=== PATIENT | male | born 1950 | race Caucasian/White ===

== ENCOUNTER 2016-11-30 10:45 | Inpatient (IN) | payer OTHER ==
--- NOTE | ~2016-11-30 | HP ---
History And Physical [place] [id number] [facility] [place]. [address] NAME: SHELBIE BUSTILLO : 52 STATUS : ADM Aissatou PAT#: [id number] AGE: 66 ADM/REG DATE : 11/30/16 MR#: [id number] REPORT SERV DATE: 11/30/16 DICTATED BY: EFFIE STEVENS DATE: 11/30/16 REPORT STATUS : Draft TRANSCRIBED BY: MODAissatou DATE: 11/30/16 DATE OF ADMISSION: 11/30/2016 CHIEF COMPLAINT: Chest pain. HISTORY OF PRESENT ILLNESS: This is a 66-year-old male with no prior CAD but a history of type 2 diabetes mellitus and hypertension, who reports a one-week history of exertional chest pain. He describes it as "like someone sitting on my chest, and I cannot catch my breath." The pain occurs when he is walking and then can times last for hours, not necessarily relieved with rest. Last night, the chest pain occurred at rest, and he took multiple doses of aspirin which seemed to relieve the pain at first and then it would return. Today, the pain radiated to his left arm, and he rated the chest pain as a 5/10 in severity. His son brought him to our emergency department for further evaluation. Upon admission, his blood pressure was 185/110. He was chest pain free. He was given a dose of hydralazine 10 mg IV, and his blood pressure is currently 133/79. IV fluids were also started for some mild tachycardia and a creatinine of 1.4. The patient is currently chest pain free. Upon review of records, he was admitted to our chest pain observation unit in 10/2014 and underwent nuclear stress testing which was low- risk vasodilator stress test. He denies any recent significant shortness of breath other than with the chest pain. Denies PND or orthopnea. Does state problems with "circulation" to the lower extremities. Reporting leg cramps when he walks and his feet "staying cold." This has been going on for approximately three years. The patient states compliance with his blood pressure and diabetes medication, but does not regularly check his blood pressure. Denies any recent fever, cough, or chills. Denies PND, orthopnea, or presyncope. MEDICAL HISTORY: 1. Type 2 diabetes mellitus with neuropathy. He reports blood glucose 130s to 140s at home. 2. Hypertension. 3. History of nuclear stress test in 10/2014, which was a low-risk vasodilator study. 4. History of renal calculi in . PAST SURGICAL HISTORY: Tonsillectomy as a child. HOME MEDICATIONS: Amlodipine 5 q.h.s., aspirin 81 daily, Glucotrol 5 daily, lisinopril/HCTZ 20/25 daily, and metformin 1000 mg twice a day. ALLERGIES: NO KNOWN DRUG ALLERGIES. SOCIAL HISTORY: The patient is with one son who is at bedside. 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 Denies tobacco or alcohol use. FAMILY HISTORY: Son with an [place] at age 33 requiring cardiac stents. Brother with PCI in 2004 at age 55. Sister with an [place] at age 65, still living. History And Physical [address] [address] NAME: SHELBIE BUSTILLO : 52 STATUS : ADM Aissatou PAT#: [id number] AGE: 66 ADM/REG DATE : 11/30/16 MR#: [id number] REPORT SERV DATE: 11/30/16 DICTATED BY: EFFIE STEVENS DATE: 11/30/16 REPORT STATUS : Draft TRANSCRIBED BY: SANDRA DATE: 11/30/16 REVIEW OF SYSTEMS: Negative except as indicated above. PHYSICAL EXAMINATION: VITAL SIGNS: Blood pressure 185/110, down to 133/79; heart rate 80s to 90s; temperature 98.1; pulse oximetry 97% on room air. GENERAL: Well developed, well nourished, in no acute distress HEENT: Anicteric. Normal EOM. Head normocephalic. PERRLA, no xanthelasma. NECK: Supple. No JVD. Carotids normal without bruits. LUNGS: Clear to auscultation bilaterally anterior and posterior. Respirations even and unlabored. CARDIAC: S1, S2 regular rate and rhythm. No murmurs, rubs, or gallops. No chest wall tenderness. ABDOMEN: Normal bowel sounds. Soft and nontender to palpation. No masses or organomegaly. EXTREMITIES: There is a trace edema to the bilateral lower extremities. Normal pedal pulses. No cyanosis or clubbing. SKIN: Warm and dry. Normal turgor. No pallor or cyanosis. MUSCULOSKELETAL: Moving all extremities x4. Normal muscle strength. NEURO/PSYCH: Alert and oriented with appropriate affect. LABORATORY DATA: Sodium 138, potassium 4.4, BUN 21, creatinine 1.4 and baseline also around 1.4 in 2015, and glucose 272. White blood count 6.4, hemoglobin 14.1, hematocrit 40.5. Troponin less than 0.02. Chest x-ray shows no acute cardiopulmonary processes. EKG interpreted by myself indicates normal sinus rhythm with poor R-wave progression through the anteroseptal leads. No indication of ischemia. ASSESSMENT AND PLAN: 1. Substernal chest pain in this 66-year-old male with features concerning for unstable angina. His cardiovascular risk factors include hypertension and diabetes mellitus. His initial troponin is negative. We will plan to draw a second troponin, and if this is normal, likely proceed with nuclear stress testing in the morning to identify any patterns of ischemia. I would have a low threshold for sending him for cardiac catheterization, getting his presenting symptoms. Meanwhile, we will continue aspirin therapy and likely initiate beta-andrea therapy after stress testing. Also plan to start nitroglycerin paste for re-occurrence of any chest pain. 2. Hypertension. Blood pressure is now controlled status post hydralazine IV. The patient is on Zestoretic at home. We will continue. 3. Type 2 diabetes mellitus, appears uncontrolled. The patient takes metformin at home. We will hold this while he is here. [place] level 1 sliding scale insulin protocol. Plan to check hemoglobin A1c. 4. Acute kidney injury versus chronic kidney disease with a creatinine at 1.4. We will continue some IV hydration, although the patient denies any recent nausea, vomiting, or diarrhea. History And Physical [address] [address] NAME: SHELBIE BUSTILLO : 52 STATUS : ADM Aissatou PAT#: [id number] AGE: 66 ADM/REG DATE : 11/30/16 MR#: [id number] REPORT SERV DATE: 11/30/16 DICTATED BY: EFFIE STEVENS DATE: 11/30/16 REPORT STATUS : Draft TRANSCRIBED BY: SANDRA DATE: 11/30/16 MONICA/SANDRA Effie Stevens NP / [id number] CC: JAMIE Foote M.D.
--- NOTE | ~2016-11-30 | DS ---
Discharge Summary [facility] [address] [place]. [address] NAME: SHELBIE BUSTILLO : 52 STATUS : DIS IN PAT#: [id number] AGE: 66 ADM/REG DATE : 11/30/16 MR#: [id number] REPORT SERV DATE: 12/10/16 DICTATED BY: ROMARIO CR DATE: 12/10/16 REPORT STATUS : Draft TRANSCRIBED BY: SANDRA DATE: 12/10/16 Data Collection from hospitalization DISCHARGE DIAGNOSES: 1. Unstable angina. 2. Coronary artery disease status post drug-eluting stent to the RCA. 3. Hypertension. 4. Type 2 diabetes mellitus. CONSULTATIONS: None. PROCEDURES: Cardiac catheterization and percutaneous coronary intervention, 12/03/2016. DISCHARGE MEDICATIONS: Norvasc 5 mg at bedtime, Halfprin 81 mg daily, Lipitor 40 mg at bedtime, Coreg 3.125 mg twice a day, Plavix 75 mg daily, Glucotrol 5 mg daily, Zestoretic one tablet daily, Glucophage 1000 mg with breakfast and supper, nitroglycerin 0.4 mg sublingually as needed. CONDITION ON DISCHARGE: Stable. DISPOSITION: The patient was discharged home on a low sodium, low cholesterol, diabetic diet with no concentrated carbohydrates and activities as instructed. FOLLOWUP: He would follow up with me, 01/07/2017. He would follow up with Dr. Nash Richards, 12/17/2016. He would follow up at [facility] in two to seven days following discharge. HOSPITAL COURSE: This is a 66-year-old man, who has no prior coronary artery disease, but does have a history of type 2 diabetes mellitus and hypertension. He reports a one-week history of exertional chest pain. He described it as "someone sitting on his chest and could not catch his breath." The pain occurred when he was walking and at times, it can last for hours. It is not necessarily relieved with rest. On the night prior to this admission, the chest pain occurred at rest and he took multiple doses of aspirin, which seemed to relieve the pain at first and then it would return. On the day of this admission, the pain radiated to his left arm and he rated the chest pain as 5/10 in severity. His son brought him to the emergency department. His blood pressure was 185/110. He was chest pain free. He was given a dose of IV hydralazine and his blood pressure decreased to 133/79. IV fluids were started for some mild tachycardia. Creatinine level was 1.4. He was admitted to the hospital at this time for further evaluation and treatment. Upon admission, his initial troponin was negative. A second troponin would be drawn and if that was normal, we would likely proceed with nuclear stress testing to identify any patterns of ischemia. There would be a low threshold for sending him for cardiac catheterization given his presenting symptoms. Aspirin therapy would be continued and we would likely initiate beta-andrea therapy after stress testing. We also planned to start nitroglycerin paste for reoccurrence of any chest pain. Blood pressure was now controlled following IV hydralazine. The patient was on Zestoretic at home and this was continued. Blood sugars were uncontrolled. He takes metformin at home. This would be held while he Discharge Summary [address] [address] NAME: SHELBIE BUSTLILO : 52 STATUS : DIS IN PAT#: [id number] AGE: 66 ADM/REG DATE : 11/30/16 MR#: [id number] REPORT SERV DATE: 12/10/16 DICTATED BY: ROMARIO CR DATE: 12/10/16 REPORT STATUS : Draft TRANSCRIBED BY: SANDRA DATE: 12/10/16 was here. We instituted level 1 sliding scale insulin protocol. We were going to check a hemoglobin A1c. He was felt to have acute kidney injury versus chronic kidney disease with a creatinine of 1.4. IV hydration would be continued. Also, the patient denied recent nausea, vomiting, or diarrhea. The patient did not want to undergo a stress test. We would consider proceeding with cardiac catheterization. Beta-andrea and nitroglycerin paste were started. A lipid panel was going to be checked. The following day, his symptoms were now stable. His lungs were clear bilaterally. Over the next couple of days, he had no further chest pain or shortness of breath. On 12/03/2016, he was taken to the cardiac tender labor, where he underwent the above-mentioned procedure by Dr. Charlie Elizabeth. He tolerated this well and there were no complications. Following the cardiac catheterization, he felt well. He had no chest pain. Discharge instructions were given. Due to his improved and stable condition, he was discharged home with the above-stated instructions. Information collected by: Leonela Chris I submit the above information as my discharge summary. RODNEY/SANDRA Romario Cr M.D. / [id number] CC: JAMIE Foote M.D.
[2016-11-30 09:37] LABS: BASOPHILS 0.3 %; BASOPHILS ABSOLUTE 0.02 10/3/uL (0.0-0.16); EOSINOPHILS 7.5 %; EOSINOPHILS ABSOLUTE 0.48 10/3/uL (0.0-0.53); HEMATOCRIT 40.5 % (40.0-51.0); HEMOGLOBIN 14.1 g/dL (13.6-17.8); IMMATURE GRANULOCYTES 0.3 %; IMMATURE GRANULOCYTES ABSOLUTE 0.02 10/3/uL (0.0-0.11); LYMPHOCYTES 26.4 %; LYMPHOCYTES ABSOLUTE 1.69 10/3/uL (0.67-4.30); MANUAL DIFF NO %; MEAN CORPUS HGB CONC 34.8 g/dL (32.0-36.0); MEAN PLATELET VOLUME 10.3 fL (9.2-13.0); MONOCYTES 6.9 %; MONOCYTES ABSOLUTE 0.44 10/3/uL (0.21-1.20); NEUTROPHILS 58.6 %; NEUTROPHILS ABSOLUTE 3.76 10/3/uL (2.02-8.40); PLATELET COUNT 191 10/3/uL (150-400); RBC DISTRIBUTION WIDTH 12.8 % (12.0-16.0); WHITE BLOOD CELLS 6.4 10/3/uL (4.5-10.5)
[2016-11-30 09:44] LABS: PARTIAL THROMBO TIME 29.4 SEC (22.5-37.2)
[2016-11-30 09:50] LABS: INTERNATIONAL NORMAL RATI 1.1 UNITS (-); PROTIME (NOT ORD) 14.1 SEC (12.0-14.5)
[2016-11-30 09:56] LABS: BUN (BLOOD UREA NITROGEN) 21 MG/DL (6-23); CALCIUM, SERUM 8.9 MG/DL (8.5-10.4); CHEST PAIN PROFILE TAT 0 Hrs 23 Mins; CHLORIDE, SERUM 103 MMOL/L (96-112); CREATININE 1.48 MG/DL (0.70-1.30); GFR AFRICAN AMERICAN 57 ML/MIN (>=60); GFR NON AFRICAN AMERICAN 49 ML/MIN (>=60); POTASSIUM, SERUM 4.4 MMOL/L (3.5-5.3); SODIUM, SERUM 138 MMOL/L (135-148); TROPONIN I <0.02 NG/ML (<0.05)
[2016-11-30 09:57] LABS: CO2 (CARBON DIOXIDE) 21 MMOL/L (24-34); GLUCOSE, SERUM 272 MG/DL (60-99)
[~2016-11-30 10:45] MED LIST: ASAB PO; GLUCOPHAGE1000 MG PO; GLUCOTROL5 PO; GLYNASE6 MG PO; HALF81 PO; MULTIVITAMI1 PO; NORV5 PO; PRAVACHOL40 MG PO; ZESTORETIC PO; ZESTORETIC1 TA1 PO
[2016-12-01 06:38] LABS: BUN (BLOOD UREA NITROGEN) 19 MG/DL (6-23); CALCIUM, SERUM 8.6 MG/DL (8.5-10.4); CHLORIDE, SERUM 108 MMOL/L (96-112); CHOL/HDL RATIO(NOT ORDER) 5.5 (0-5); CHOLESTEROL 169 MG/DL (< 200); CREATININE 1.26 MG/DL (0.70-1.30); GFR AFRICAN AMERICAN 69 ML/MIN (>=60); GFR NON AFRICAN AMERICAN 59 ML/MIN (>=60); HDL CHOLESTEROL 31 MG/DL (> 39); LDL CHOLESTEROL 106 MG/DL (< 130); NON-HDL CHOLESTEROL 138 MG/DL (< 160); POTASSIUM, SERUM 4.7 MMOL/L (3.5-5.3); SODIUM, SERUM 141 MMOL/L (135-148)
[2016-12-01 06:39] LABS: CO2 (CARBON DIOXIDE) 27 MMOL/L (24-34); GLUCOSE, SERUM 131 MG/DL (60-99); TRIGLYCERIDE 163 MG/DL (< 150)
[2016-12-02 11:36] LABS: BUN (BLOOD UREA NITROGEN) 22 MG/DL (6-23); CHLORIDE, SERUM 102 MMOL/L (96-112); CO2 (CARBON DIOXIDE) 24 MMOL/L (24-34); CREATININE 1.52 MG/DL (0.70-1.30); GFR AFRICAN AMERICAN 55 ML/MIN (>=60); GFR NON AFRICAN AMERICAN 47 ML/MIN (>=60); GLUCOSE, SERUM 310 MG/DL (60-99); POTASSIUM, SERUM 4.7 MMOL/L (3.5-5.3); SODIUM, SERUM 137 MMOL/L (135-148)
[2016-12-03 05:05] LABS: BASOPHILS 0.2 %; BASOPHILS ABSOLUTE 0.02 10/3/uL (0.0-0.16); EOSINOPHILS 8.3 %; EOSINOPHILS ABSOLUTE 0.67 10/3/uL (0.0-0.53); HEMATOCRIT 38.3 % (40.0-51.0); HEMOGLOBIN 13.2 g/dL (13.6-17.8); IMMATURE GRANULOCYTES 0.1 %; IMMATURE GRANULOCYTES ABSOLUTE 0.01 10/3/uL (0.0-0.11); LYMPHOCYTES 32.3 %; LYMPHOCYTES ABSOLUTE 2.62 10/3/uL (0.67-4.30); MEAN CORPUS HGB CONC 34.5 g/dL (32.0-36.0); MEAN CORPUSCULAR VOLUME 92.7 fL (80-100); MEAN PLATELET VOLUME 10.4 fL (9.2-13.0); MONOCYTES 7.8 %; MONOCYTES ABSOLUTE 0.63 10/3/uL (0.21-1.20); NEUTROPHILS 51.3 %; NEUTROPHILS ABSOLUTE 4.15 10/3/uL (2.02-8.40); PLATELET COUNT 214 10/3/uL (150-400); RBC DISTRIBUTION WIDTH 12.9 % (12.0-16.0); RED CELL COUNT 4.13 10/6/uL (4.7-6.1); WHITE BLOOD CELLS 8.1 10/3/uL (4.5-10.5)
[2016-12-03 05:10] LABS: MANUAL DIFF NO %
[2016-12-03 05:21] LABS: BUN (BLOOD UREA NITROGEN) 25 MG/DL (6-23); CALCIUM, SERUM 9.2 MG/DL (8.5-10.4); CHLORIDE, SERUM 103 MMOL/L (96-112); CHOL/HDL RATIO(NOT ORDER) 5.3 (0-5); CHOLESTEROL 168 MG/DL (< 200); CO2 (CARBON DIOXIDE) 25 MMOL/L (24-34); CREATININE 1.56 MG/DL (0.70-1.30); GFR AFRICAN AMERICAN 53 ML/MIN (>=60); GFR NON AFRICAN AMERICAN 46 ML/MIN (>=60); HDL CHOLESTEROL 32 MG/DL (> 39); LDL CHOLESTEROL 107 MG/DL (< 130); NON-HDL CHOLESTEROL 136 MG/DL (< 160); POTASSIUM, SERUM 4.6 MMOL/L (3.5-5.3); SODIUM, SERUM 139 MMOL/L (135-148); TRIGLYCERIDE 146 MG/DL (< 150)
[2016-12-03 05:22] LABS: GLUCOSE, SERUM 187 MG/DL (60-99)
[2016-12-03] MEDS ORDERED: NTG150 SL (14:17)
[2016-12-03] MEDS ORDERED: COREG3 PO (14:18)
[2016-12-03] MEDS ORDERED: PLAVIX PO (14:18)
[2016-12-03] MEDS ORDERED: LIPITOR40 PO (14:18)
[2016-12-04] MEDS ORDERED: CENTRUM PO (14:23)
== END 2016-12-03 16:55 | disposition home or self-care (01) | DRG 247 ==
LOC: ER 10:45 → CDU1 11:14 → CDU2 11:52 → SSU1 12-03 09:45
PROVIDERS: Hospitalist; Nurse Practitioner
PROC: 027034Z Dilation of Coronary Artery, One Artery with Drug-eluting Intraluminal Device, Percutaneous Approach (ICD-10-PCS; principal; 2016-12-03)
PROC: 4A023N7 Measurement of Cardiac Sampling and Pressure, Left Heart, Percutaneous Approach (ICD-10-PCS; 2016-12-03)
PROC: B2151ZZ Fluoroscopy of Left Heart using Low Osmolar Contrast (ICD-10-PCS; 2016-12-03)
PROC: B2111ZZ Fluoroscopy of Multiple Coronary Arteries using Low Osmolar Contrast (ICD-10-PCS; 2016-12-03)
DX: I25.110 Atherosclerotic heart disease of native coronary artery with unstable angina pectoris (principal); N17.9 Acute kidney failure, unspecified; I10 Essential (primary) hypertension; E11.65 Type 2 diabetes mellitus with hyperglycemia; N18.9 Chronic kidney disease, unspecified; E66.9 Obesity, unspecified; Z79.4 Long term (current) use of insulin; Z82.49 Family history of ischemic heart disease and other diseases of the circulatory system; Z87.442 Personal history of urinary calculi
CPT/HCPCS: 71020; 80048; 80061; 82962; 83036; 83735; 84484; 85025; 85347; 85610; 85730; 93005; 93458; 96374; 99152; 99153; 99285; A9270-GY; C1725; C1769; C1874; C1887; C1894; C9600; J0360; J2250; J3010; Q9967

== ENCOUNTER 2016-12-04 14:14 | Emergency (ER) | payer OTHER ==
[2016-12-04 13:48] LABS: BASOPHILS 0 %; EOSINOPHILS 0.1 %; EOSINOPHILS ABSOLUTE 0.01 10/3/uL (0.0-0.53); HEMATOCRIT 39.8 % (40.0-51.0); HEMOGLOBIN 13.7 g/dL (13.6-17.8); IMMATURE GRANULOCYTES 0.2 %; IMMATURE GRANULOCYTES ABSOLUTE 0.02 10/3/uL (0.0-0.11); LYMPHOCYTES 5.8 %; LYMPHOCYTES ABSOLUTE 0.76 10/3/uL (0.67-4.30); MEAN CORPUS HGB CONC 34.4 g/dL (32.0-36.0); MEAN CORPUSCULAR HEMOGLOB 31.8 pg (26.0-34.0); MEAN CORPUSCULAR VOLUME 92.3 fL (80-100); MEAN PLATELET VOLUME 10.7 fL (9.2-13.0); MONOCYTES ABSOLUTE 0.79 10/3/uL (0.21-1.20); NEUTROPHILS 87.9 %; NEUTROPHILS ABSOLUTE 11.63 10/3/uL (2.02-8.40); PLATELET COUNT 241 10/3/uL (150-400); RBC DISTRIBUTION WIDTH 12.9 % (12.0-16.0); RED CELL COUNT 4.31 10/6/uL (4.7-6.1)
[2016-12-04 13:49] LABS: ER CBC TAT 0 Hrs 08 Mins; MANUAL DIFF NO %; WHITE BLOOD CELLS 13.2 10/3/uL (4.5-10.5)
[2016-12-04 13:59] LABS: INTERNATIONAL NORMAL RATI 1.1 UNITS (-); PARTIAL THROMBO TIME 27.8 SEC (22.5-37.2); PROTIME (NOT ORD) 13.6 SEC (12.0-14.5)
[2016-12-04 14:04] LABS: CHEST PAIN PROFILE TAT 0 Hrs 23 Mins; CHLORIDE, SERUM 99 MMOL/L (96-112); CO2 (CARBON DIOXIDE) 28 MMOL/L (24-34); CREATININE 1.43 MG/DL (0.70-1.30); GFR AFRICAN AMERICAN 59 ML/MIN (>=60); GFR NON AFRICAN AMERICAN 51 ML/MIN (>=60); POTASSIUM, SERUM 4.4 MMOL/L (3.5-5.3); SODIUM, SERUM 137 MMOL/L (135-148); TROPONIN I <0.02 NG/ML (<0.05)
[2016-12-04 14:05] LABS: BUN (BLOOD UREA NITROGEN) 19 MG/DL (6-23); GLUCOSE, SERUM 321 MG/DL (60-99)
[~2016-12-04 14:14] MED LIST changes: +COREG3 PO; +LIPITOR40 PO; +NTG150 SL; +PLAVIX PO
[2016-12-04] MEDS ORDERED: CENTRUM PO (14:23)
== END 2016-12-04 16:18 | disposition home or self-care (01) ==
LOC: ER 14:14
PROVIDERS: Hospitalist
DX: I20.9 Angina pectoris, unspecified (principal); I12.9 Hypertensive chronic kidney disease with stage 1 through stage 4 chronic kidney disease, or unspecified chronic kidney disease; N18.3 Chronic kidney disease, stage 3 (moderate); E11.22 Type 2 diabetes mellitus with diabetic chronic kidney disease; Z87.442 Personal history of urinary calculi; Z98.61 Coronary angioplasty status; Z79.899 Other long term (current) drug therapy; Z79.84 Long term (current) use of oral hypoglycemic drugs; Z79.82 Long term (current) use of aspirin
CPT/HCPCS: 71020; 80048; 83735; 84484; 85025; 85610; 85730; 93005; 99285; A9270-GY

== ENCOUNTER 2017-01-21 17:50 | Observation (INO) | payer OTHER ==
--- NOTE | ~2017-01-21 | HP ---
History And Physical [place] [id number] [facility] [place]. [address] NAME: SHELBIE BUSTILLO : 52 STATUS : ADM Aissatou PAT#: [id number] AGE: 66 ADM/REG DATE : 01/21/17 MR#: [id number] REPORT SERV DATE: 01/22/17 DICTATED BY: JESSICA TENA DATE: 01/22/17 REPORT STATUS : Draft TRANSCRIBED BY: SANDRA DATE: 01/22/17 DATE OF ADMISSION: 01/21/2017 ASSISTANT TEACHER: Romario Guzman M.D. CHIEF COMPLAINT: Chest pain. HISTORY OF PRESENT ILLNESS: A very pleasant 66-year-old white gentleman with known history of CAD, status post KEY to RCA, 11/2016. The patient states that he returned to our emergency room on 12/07/2016 the day after his stent was placed for complaints of chest pain. He was seen in the emergency room, Imdur was added and he was discharged home. He states that the Imdur helped briefly, but his chest pain has persisted. He describes the chest pain as "identical" to his previous cardiac event. He reports two to three episodes of chest discomfort weekly that occur randomly. There also seems to be a GI component as he has not been eager with meals and some nausea. He reports associated shortness of breath, nausea, diaphoresis, dizziness, and belching. At its most intense he rates the chest pain a 10/10, at time of interview in the CPOU he rates it a 1/10. He reports requiring several doses of nitroglycerin sublingual prior to coming, returning back to the hospital. He also has right upper quadrant tenderness on exam. The patient denies any personal history of myocardial infarction, stroke, DVT, or pulmonary embolus. The patient denies any recent fever or chills. Describes occasional palpitations, consumes three cups of coffee per day. No syncopal episodes. Denies PND or orthopnea. PAST MEDICAL HISTORY: 1. CAD. a. Status post KEY to RCA 11/[address] Elizabeth with 75% lesion in his OM and a 95% in his distal LAD. 2. Hypertension. 3. Dyslipidemia. 4. AODM. 5. Former tobacco abuse. 6. Positive family history for early CAD. SURGICAL HISTORY: Tonsillectomy. SOCIAL HISTORY: He is with one child. Retired from [employer]. Does not have an exercise routine. Quit smoking 15 years ago. Also smoked and used smokeless tobacco products. Rarely consumes alcohol. Denies illicits. FAMILY HISTORY: Mother at 72 of ESRD. Father at 58 of black lung disease, who was land title examiner. Sister with CAD and stents, remains alive at 69. Brother with CAD and stents at 50, remains alive at 64. Son with two stents at 34, remains alive at 46. REVIEW OF SYSTEMS: 14-point review of systems performed, significant for HPI. No other contributory diagnosis History And Physical [address] [address] NAME: SHELBIE BUSTILLO : 52 STATUS : ADM Aissatou PAT#: [id number] AGE: 66 ADM/REG DATE : 01/21/17 MR#: [id number] REPORT SERV DATE: 01/22/17 DICTATED BY: JESSICA TENA DATE: 01/22/17 REPORT STATUS : Draft TRANSCRIBED BY: SANDRA DATE: 01/22/17 identified. ALLERGIES: NO KNOWN DRUG ALLERGIES. HOME MEDICINES: Metformin a 1000 mg twice daily, glipizide 5 mg daily, aspirin 81 mg daily, nitroglycerin p.r.n., clopidogrel 75 mg daily, atorvastatin 40 mg nightly, carvedilol 3.125 twice daily, multivitamin daily, lisinopril 5 mg daily, Imdur 30 mg daily. PHYSICAL EXAMINATION: VITAL SIGNS: Bilateral blood pressures on arrival right 189/88, left 175/85, this morning 127/73; pulse 90; respirations 26; temperature 98.4; O2 saturation 93% on 3 L. Height 5 feet 8 inches, weight 183 pounds, BMI 28. GENERAL: Cooperative, in no apparent distress. HEENT: Pupils 2 mm, sclera nonicteric. Nares patent. Moist mucous membranes. No xanthelasma. NECK: Trachea midline, no thyromegaly. No JVD. No bruits. LYMPH: No cervical lymphadenopathy. No supraclavicular lymphadenopathy. RESPIRATORY: Unlabored respirations. Breath sounds clear bilaterally to posterior auscultation. No wheezes or rhonchi. CARDIOVASCULAR: Regular rate. No murmur, rub or gallop appreciated. Extremities without edema. Pulses 2+ bilaterally. ABDOMEN: Soft, nontender, nondistended, normal bowel sounds auscultated throughout. No organomegaly. Right upper quadrant tenderness to palpation. SKIN: Warm, dry extremities. No pallor, or cyanosis. PSYCHIATRIC: Appropriate affect. Alert, oriented x3. LABORATORY: Troponin 0.43 (previously less than 0.02, 0.06, 0.15, now 0.43). Potassium 4.2, BUN 15, creatinine 1.52, glucose 215. Magnesium 1.6. Lipase 162. BNP 379. WBC 4.2, hemoglobin 13.0, hematocrit 37.4, platelet count 146,000. EKG sinus rhythm. CT of abdomen and pelvis without contrast: Sludge in gallbladder neck with questionable 1 mm stone, question acute cholecystitis. ASSESSMENT AND PLAN: 1. Substernal chest pain similar to previous fourth troponin 0.43. The patient is being held n.p.o. for now with consider need for cath if OM lesion amenable to stenting. 2. Right upper quadrant tenderness. Check amylase, lipase, hepatic panel. Check ultrasound of gallbladder. 3. Coronary artery disease, continue home medications. 4. Hypertension, monitor blood pressure. Continue home medications. 5. Dyslipidemia, continue statin. 6. Adult-onset diabetes mellitus, hold metformin level [address] Brown to see on rounds. Further recommendations forthcoming to consider proceeding with arteriogram given chest pain complaints in light of creatinine of 1.52. Baseline seems to be 1.2 to 1.5. History And Physical [address] [address] NAME: SHELBIE BUSTILLO : 52 STATUS : ADM Aissatou PAT#: [id number] AGE: 66 ADM/REG DATE : 01/21/17 MR#: [id number] REPORT SERV DATE: 01/22/17 DICTATED BY: JESSICA TENA DATE: 01/22/17 REPORT STATUS : Draft TRANSCRIBED BY: SANDRA DATE: 01/22/17 KIYA/SANDRA Jessica Tena, MSN, [employer] L[employer] SPLITTER-[employer] / [id number] CC: Jessica Tena, MSN, [facility] Nash Richards M.D.
[2017-01-21 14:40] LABS: BASOPHILS 0.2 %; BASOPHILS ABSOLUTE 0.02 10/3/uL (0.0-0.16); EOSINOPHILS 6.2 %; EOSINOPHILS ABSOLUTE 0.52 10/3/uL (0.0-0.53); ER CBC TAT 0 Hrs 08 Mins; HEMATOCRIT 37.3 % (40.0-51.0); HEMOGLOBIN 12.7 g/dL (13.6-17.8); IMMATURE GRANULOCYTES 0.2 %; IMMATURE GRANULOCYTES ABSOLUTE 0.02 10/3/uL (0.0-0.11); LYMPHOCYTES 12.7 %; LYMPHOCYTES ABSOLUTE 1.07 10/3/uL (0.67-4.30); MEAN CORPUSCULAR HEMOGLOB 31.8 pg (26.0-34.0); MEAN CORPUSCULAR VOLUME 93.3 fL (80-100); MEAN PLATELET VOLUME 10.3 fL (9.2-13.0); MONOCYTES 7.7 %; MONOCYTES ABSOLUTE 0.65 10/3/uL (0.21-1.20); NEUTROPHILS ABSOLUTE 6.16 10/3/uL (2.02-8.40); PLATELET COUNT 178 10/3/uL (150-400); RBC DISTRIBUTION WIDTH 13.1 % (12.0-16.0); WHITE BLOOD CELLS 8.4 10/3/uL (4.5-10.5)
[2017-01-21 14:41] LABS: MANUAL DIFF NO %
[2017-01-21 14:47] LABS: INTERNATIONAL NORMAL RATI 1.1 UNITS (-); PARTIAL THROMBO TIME 33.1 SEC (22.5-37.2); PROTIME (NOT ORD) 14.3 SEC (12.0-14.5)
[2017-01-21 14:58] LABS: CALCIUM, SERUM 8.9 MG/DL (8.5-10.4); CHEST PAIN PROFILE TAT 0 Hrs 00 Mins; CHLORIDE, SERUM 104 MMOL/L (96-112); CO2 (CARBON DIOXIDE) 25 MMOL/L (24-34); CREATININE 1.52 MG/DL (0.70-1.30); GFR AFRICAN AMERICAN 55 ML/MIN (>=60); GFR NON AFRICAN AMERICAN 47 ML/MIN (>=60); POTASSIUM, SERUM 4.2 MMOL/L (3.5-5.3); SODIUM, SERUM 137 MMOL/L (135-148); TROPONIN I <0.02 NG/ML (<0.05)
[2017-01-21 15:00] LABS: BUN (BLOOD UREA NITROGEN) 15 MG/DL (6-23); GLUCOSE, SERUM 215 MG/DL (60-99)
[~2017-01-21 17:50] MED LIST changes: +CENTRUM PO
[2017-01-21] MEDS ORDERED: PRIN5 PO (18:48)
[2017-01-21] MEDS ORDERED: IMDUR30 PO (18:49)
[2017-01-22 06:25] LABS: BASOPHILS 0 %; EOSINOPHILS 1.7 %; EOSINOPHILS ABSOLUTE 0.07 10/3/uL (0.0-0.53); HEMATOCRIT 37.4 % (40.0-51.0); LYMPHOCYTES ABSOLUTE 0.34 10/3/uL (0.67-4.30); MEAN CORPUS HGB CONC 34.8 g/dL (32.0-36.0); MEAN CORPUSCULAR HEMOGLOB 31.8 pg (26.0-34.0); MEAN CORPUSCULAR VOLUME 91.4 fL (80-100); MEAN PLATELET VOLUME 10.4 fL (9.2-13.0); MONOCYTES 1.7 %; MONOCYTES ABSOLUTE 0.07 10/3/uL (0.21-1.20); NEUTROPHILS 88.6 %; NEUTROPHILS ABSOLUTE 3.75 10/3/uL (2.02-8.40); PLATELET COUNT 146 10/3/uL (150-400); RBC DISTRIBUTION WIDTH 12.9 % (12.0-16.0); RED CELL COUNT 4.09 10/6/uL (4.7-6.1)
[2017-01-22 06:26] LABS: MANUAL DIFF NO %; WHITE BLOOD CELLS 4.2 10/3/uL (4.5-10.5)
[2017-01-22 11:15] LABS: TROPONIN I 0.43 NG/ML (<0.05)
[2017-01-22 12:41] LABS: CHOL/HDL RATIO(NOT ORDER) 3.3 (0-5); DIRECT BILIRUBIN 2.5 MG/DL (0.0-0.4); INDIRECT BILIRUBIN(NOT ORDER) 1.1 MG/DL (0.1-0.9); TOTAL BILIRUBIN 3.6 MG/DL (0-1.2); TOTAL PROTEIN 6.6 G/DL (6.0-8.5)
[2017-01-23] MEDS ORDERED: IMDUR60 PO (08:10)
[2017-01-23] MEDS ORDERED: NORV5 PO (08:11)
== END 2017-01-23 08:44 | disposition home or self-care (01) ==
LOC: ER 17:50 → CDU1 20:53
PROVIDERS: Clinical Nurse Specialist; Hospitalist
DX: I21.4 Non-ST elevation (NSTEMI) myocardial infarction (principal); I25.118 Atherosclerotic heart disease of native coronary artery with other forms of angina pectoris; E78.2 Mixed hyperlipidemia; I10 Essential (primary) hypertension; E11.9 Type 2 diabetes mellitus without complications; R10.811 Right upper quadrant abdominal tenderness; Z95.5 Presence of coronary angioplasty implant and graft; Z87.891 Personal history of nicotine dependence; Z90.89 Acquired absence of other organs
CPT/HCPCS: 71020; 74176; 80048; 80061; 80076; 81001; 82150; 82962; 83690; 83735; 83880; 84484; 85025; 85610; 85730; 93005; 93458; 96374; 96375; 96376; 99152; 99153; 99285; A9270-GY; C1769; C1887; C1894; G0378; J1170; J2250; J2405; J3010; Q9967

== ENCOUNTER 2017-03-06 22:04 | Observation (INO) | payer OTHER ==
--- NOTE | ~2017-03-06 | OP ---
Record Of Operation [facility] [address] [place]. [address] NAME: SHELBIE BUSTILLO : 52 STATUS : ADM Aissatou PAT#: [id number] AGE: 66 ADM/REG DATE : 03/06/17 MR#: [id number] REPORT SERV DATE: 03/07/17 DICTATED BY: ORESTES BARRERA DATE: 03/07/17 REPORT STATUS : Draft TRANSCRIBED BY: MODAissatou DATE: 03/07/17 DATE OF PROCEDURE: 03/07/2017 PREOPERATIVE DIAGNOSES: 1. Acute cholecystitis with cholelithiasis without obstruction. 2. Coronary artery disease, status post right RCA stent on 12/07. 3. Hypertension. 4. Hyperlipidemia. 5. Diabetes mellitus type 2. POSTOPERATIVE DIAGNOSES: 1. Acute cholecystitis with cholelithiasis without obstruction. 2. Coronary artery disease, status post right RCA stent on 12/07. 3. Hypertension. 4. Hyperlipidemia. 5. Diabetes mellitus type 2. PROCEDURE: Laparoscopic cholecystectomy. ANESTHESIA: General. RECREATION PROGRAM SPECIALIST: Osborn. COMPLICATIONS: None. DRAINS: None. ESTIMATED BLOOD LOSS: 75 mL. FINDINGS: The patient was noted to have a markedly distended gallbladder, with gallbladder wall thickening, and erythema consistent with cholecystitis. He had normal preoperative liver function studies, and normal-sized cystic duct, with a tremendous amount of periductal inflammation and scarring. No cholangiogram was obtained. OPERATIVE TECHNIQUE: The patient was brought to the operating room and placed on the table in supine position. He had preoperative IV antibiotics. He had sequential hose in place. He voided prior to procedure. He underwent general endotracheal anesthesia and was prepped and draped in sterile fashion. A time-out was completed. Local anesthesia was instilled to the periumbilical skin. A 15 blade knife was used to make incision through the base umbilicus. The skin and fascia were elevated. The Veress needle was inserted and water drop test was safely performed. An 11 mm trocar was inserted through the umbilicus followed by the laparoscope. There was no evidence of Veress or trocar injury. The patient was then placed in reverse Trendelenburg and rolled to the left. An 11 mm subxiphoid and two 5 mm right upper quadrant trocars were placed under direct visualization. The gallbladder fundus was grasped and elevated, but unable to be grabbed due to distention. The gallbladder was then aspirated and approximately 60 mL of clear hydrops fluid was aspirated and sent for Record Of Operation [address] [address] NAME: SHELBIE BUSTILLO : 52 STATUS : ADM Aissatou PAT#: [id number] AGE: 66 ADM/REG DATE : 03/06/17 MR#: [id number] REPORT SERV DATE: 03/07/17 DICTATED BY: ORESTES BARRERA DATE: 03/07/17 REPORT STATUS : Draft TRANSCRIBED BY: SANDRA DATE: 03/07/17 culture. At this point, the hydrodissection began and the tremendous amount of inflammatory exudate and fibrosis was dissected using hydrodissection at the gallbladder, cystic duct junction. This procedure began using hydrodissection on the lateral aspect of the cystic duct and continued circumferentially until the entire gallbladder at the gallbladder plate was encircled including the artery. There was a large phlegmon in this area and it was carefully dissected using blunt dissection with a [place] dissector, and an additional significant dissection with hydrodissection until both structures were clearly identified. The cystic duct and artery were seen for several centimeters and the cystic artery was then clipped twice and cauterized distally. There was an accessary posterior artery that ran in the hepatic fossa, after the gallbladder was completely mobilized from the plate to isolate the cystic duct. It was clipped proximally and distally and left in situ. The cystic duct was then completely encircled and noted to be approximately 15 cm. It was unable to be clipped, due to the thickening and fibrosis, and therefore, it was divided with scissors at the gallbladder cystic duct junction, and then using two Endoloops it was carefully endo- looped. It was full thickness loop with care taken not to divide the cystic duct which was identified and noted to be small. Of note, prior to endo-looping the cystic duct stump, there was no biliary leakage, and it was felt to be possibly completely fibrotic. The rest of the gallbladder was then removed from the fossa using electrocautery hook and hydrodissection, and placed in a specimen bag, and removed through the umbilicus, with extension of the fascial incision. The laparoscope was reinserted, examination of hepatic fossa noted to be hemostatic. The clips were noted to be intact. The Endoloops were noted to be intact. There was no evidence of any bleeding or biliary spillage or other visual abnormalities. All the aspirate fluid was aspirated as much as possible, due to the patient scheduled to be anticoagulated once again. The hepatic fossa was covered with FloSeal. There was no evidence of any other visual abnormalities and therefore all the instruments and trocars were removed under direct visualization. The pneumoperitoneum was then aspirated after all the instruments and trocars were removed. The umbilical fascia was reapproximated using a running 0 Vicryl suture. Skin edges were reapproximated using absorbable subcuticular Monocryl sutures. Dermabond was applied. He was extubated taken to the recovery room in stable condition. All sponge needle counts were reported correct. DH/MODL Orestes Barrera M.D. / [id number] CC: Richie Diane M.D. Joyce Beardsley, MSN, ASSOCIATE DIRECTOR- Romario Guzman M.D. Nash Richards M.D.
--- NOTE | ~2017-03-06 | HP ---
History And Physical [id number] [place]. [address] NAME: SHELBIE BUSTILLO : 52 STATUS : ADM Aissatou PAT#: [id number] AGE: 66 ADM/REG DATE : 03/06/17 MR#: [id number] REPORT SERV DATE: 03/07/17 DICTATED BY: ORESTES BARRERA DATE: 03/07/17 REPORT STATUS : Draft TRANSCRIBED BY: MODL DATE: 03/07/17 DATE OF ADMISSION: 03/06/2017 CHIEF COMPLAINT: Right upper quadrant pain. HISTORY OF PRESENT ILLNESS: This pleasant 66-year-old gentleman presented to the emergency department with a five-day history of right upper quadrant pain. The pain was worse after eating fatty foods. He states, he has had the discomfort intermittently over the last several months. He has a history of coronary artery disease, and had a stent placed in 11/2016. He is on aspirin and Plavix. He denies any current chest pain, and states that this pain is different from his pain previously in the year. He had persistent nausea and vomiting over the past several days. He denies hematemesis, coffee-grounds emesis, bright red blood per rectum, change in the caliber of his stools or acholic stools. He denies any recent weight loss, fever, chills, or other constitutional symptoms. He had evaluation in the emergency department. He was noted to [place] [address]. His liver function studies were normal except for a mildly elevated ALT. His bilirubin and alkaline phosphatase are within normal limits. He had a subsequent CT scan of the abdomen and pelvis that revealed findings consistent with acute cholecystitis with diffusely thickened gallbladder wall, infiltration of surrounding fat planes, and layering hyperdense sludge or poorly calcified gallstones. There was no other acute abdominal or pelvic pathology. He had chest x-ray that revealed no acute process or change. The patient wishes to proceed with cholecystectomy. He is aware that he has increased cardiac risks with surgery to include DVT, PE, MA, CVA, and even . He is aware of his increased risk for bleeding with his history of aspirin and Plavix. He declines observation with IV antibiotics. PAST MEDICAL HISTORY: Coronary artery disease, hypertension, hypercholesterolemia, and diabetes mellitus type 2. PAST SURGICAL HISTORY: Coronary artery stent in November. SOCIAL HISTORY: The patient is . He is retired from [employer]. Denies alcohol, tobacco, or illicit drug usage. FAMILY HISTORY: Family history which is positive for hypertension diabetes and cancer. ALLERGIES: NO KNOWN DRUG OR LATEX ALLERGIES. REVIEW OF SYSTEMS: The patient subjectively states he has had a fever. He has abdominal pain and recent nausea and vomiting. Everything else is as above in the history of present illness. PHYSICAL EXAMINATION: GENERAL: Well-developed male, in no apparent distress. NECK: Supple. No adenopathy. CARDIOVASCULAR: Regular rate and rhythm. History And Physical [address] [address] NAME: SHELBIE BUSTILLO : 52 STATUS : ADM Aissatou PAT#: [id number] AGE: 66 ADM/REG DATE : 03/06/17 MR#: [id number] REPORT SERV DATE: 03/07/17 DICTATED BY: ORESTES BARRERA DATE: 03/07/17 REPORT STATUS : Draft TRANSCRIBED BY: MODL DATE: 03/07/17 RESPIRATORY: Clear to auscultation. ABDOMEN: Soft. The patient has severe right upper quadrant tenderness with percussive tenderness. He has no rebound. He does have voluntary guarding. BACK: No CVA tenderness. EXTREMITIES: No clubbing, cyanosis, edema, or jaundice. LABORATORY DATA: White blood cell count as above which is now 9.6 on 03/07/2017. ASSESSMENT: 1. Acute cholecystitis with cholelithiasis. 2. Coronary artery disease with history of stent placement, on Plavix and aspirin. 3. Hypertension. 4. Hyperlipidemia. 5. Diabetes mellitus type 2. PLAN: The patient wishes to proceed with laparoscopic cholecystectomy, possible cholangiogram, possible open procedure. He is aware of the risks, benefits, alternatives including as mentioned above. He declines further observation. /SANDRA Orestes Barrera M.D. / [id number] CC: Richie Diane M.D.
--- NOTE | ~2017-03-06 | CN ---
Consultation Report [facility] [address] [place]. [address] NAME: SHELBIE BUSTILLO : 52 STATUS : ADM Aissatou PAT#: [id number] AGE: 66 ADM/REG DATE : 03/06/17 MR#: [id number] REPORT SERV DATE: 03/07/17 DICTATED BY: MOLINA ARAMBULA JR. DATE: 03/07/17 REPORT STATUS : Draft TRANSCRIBED BY: SANDRA DATE: 03/07/17 CARDIOLOGY CONSULT DATE OF CONSULTATION: [facility]: Dr. Romario Guzman. REASON FOR CONSULTATION: Regarding preoperative assessment for acute cholecystitis, cholecystectomy planned. HISTORY OF PRESENT ILLNESS: A 66-year-old white male, with history of nausea and abdominal pain with tender right upper quadrant today and evidence of acute cholecystitis on CT scan on admission. Elevated SGPT. White count initially [id number]. He is currently n.p.o. and has been scheduled for cholecystectomy later today. He is on antibiotics. He has coronary heart disease and is status post recent, 11/2016 drug-eluting stent, RCA (PROMUS 3.0 stent - Dr. Elizabeth) with a subsequent readmission in January, which showed a patent right coronary artery stent, old small circumflex disease, and occlusion of a very distal apical portion of the LAD. CT evidence of gallbladder disease was present at that time as well. Currently, he describes no effort angina and his troponins have been normal on two determinations. His EKG shows no acute change. His last dose of Plavix and aspirin was yesterday. ALLERGIES: NO KNOWN DRUG ALLERGIES. HOME MEDICATIONS: Include amlodipine, aspirin, atorvastatin, carvedilol, clopidogrel, glipizide, isosorbide mononitrate, lisinopril, metformin, multivitamin, and p.r.n. Nitrostat. SOCIAL HISTORY: No illicit drugs. History of smokeless tobacco. Rare alcohol consumption. FAMILY HISTORY: Coronary heart disease. PHYSICAL EXAMINATION: VITAL SIGNS: Blood pressure 174/83, pulse is 56 and regular, room air saturation 96%, afebrile. HEENT: No xanthelasma. NECK: No JVD at 30 degrees, no thyromegaly, no carotid bruit. LUNGS: Clear to auscultation and percussion. COR: No thrills, heaves, normal S1, S2. No gallop. No rub. No murmur. Consultation Report [id number] [place]. [address] NAME: SHELBIE BUSTILLO : 52 STATUS : ADM Aissatou PAT#: [id number] AGE: 66 ADM/REG DATE : 03/06/17 MR#: [id number] REPORT SERV DATE: 03/07/17 DICTATED BY: MOLINA ARAMBULA JR. DATE: 03/07/17 REPORT STATUS : Draft TRANSCRIBED BY: SANDRA DATE: 03/07/17 ABD: Soft, no hepatosplenomegaly, no mass. Diffusely tender abdomen with positive Rubio sign, right upper quadrant. EXT: Without edema or pulse deficit. MS: Back without spine or costovertebral angle tenderness. NEURO: Symmetric findings. DISCUSSION: Acute cholecystitis with cholecystectomy planned by surgeon later today. If the surgeon wishes to proceed, there will be an increased risk of the surgical bleeding since his last dose of Plavix and aspirin was yesterday. If the surgeon is willing to accept the risk of bleeding, there is no absolute cardiac contraindication to gallbladder surgery later today. We will check TEG (Plavix cup) this morning to assess degree of platelet inhibition from Plavix and if it is decided to hold his anti-platelet medications for five days preoperatively, he will have to be bridged with cangrelor at 0.75 mcg/kg per minute until Plavix and aspirin can be restarted. Thank you for this consultation. Group to follow with you. CRISTI/SANDRA Molina Arambula Jr., M.D. / [id number] CC: Richie Diane M.D.
[~2017-03-06 22:04] MED LIST changes: +IMDUR30 PO; +IMDUR60 PO; +PRIN5 PO
[2017-03-06 22:37] LABS: BASOPHILS 0.1 %; BASOPHILS ABSOLUTE 0.01 10/3/uL (0.0-0.16); EOSINOPHILS 3.5 %; EOSINOPHILS ABSOLUTE 0.44 10/3/uL (0.0-0.53); IMMATURE GRANULOCYTES 0.4 %; IMMATURE GRANULOCYTES ABSOLUTE 0.05 10/3/uL (0.0-0.11); LYMPHOCYTES 16.3 %; LYMPHOCYTES ABSOLUTE 2.03 10/3/uL (0.67-4.30); MEAN CORPUS HGB CONC 35.9 g/dL (32.0-36.0); MEAN CORPUSCULAR VOLUME 89.2 fL (80-100); MONOCYTES 6.9 %; MONOCYTES ABSOLUTE 0.86 10/3/uL (0.21-1.20); NEUTROPHILS 72.8 %; RBC DISTRIBUTION WIDTH 12.9 % (12.0-16.0); RED CELL COUNT 4.37 10/6/uL (4.7-6.1)
[2017-03-06 22:42] LABS: ER CBC TAT 0 Hrs 13 Mins; MANUAL DIFF NO %; PLATELET COUNT 256 10/3/uL (150-400); WHITE BLOOD CELLS 12.5 10/3/uL (4.5-10.5)
[2017-03-06 22:46] LABS: INTERNATIONAL NORMAL RATI 1.1 UNITS (-); PARTIAL THROMBO TIME 28.2 SEC (22.5-37.2); PROTIME (NOT ORD) 13.6 SEC (12.0-14.5)
[2017-03-06 22:55] LABS: BUN (BLOOD UREA NITROGEN) 17 MG/DL (6-23); CALCIUM, SERUM 9.2 MG/DL (8.5-10.4); CHEST PAIN PROFILE TAT 0 Hrs 26 Mins; CHLORIDE, SERUM 101 MMOL/L (96-112); CO2 (CARBON DIOXIDE) 27 MMOL/L (24-34); CREATININE 1.05 MG/DL (0.70-1.30); GFR AFRICAN AMERICAN 86 ML/MIN (>=60); GFR NON AFRICAN AMERICAN 74 ML/MIN (>=60); GLUCOSE, SERUM 184 MG/DL (60-99); POTASSIUM, SERUM 4.2 MMOL/L (3.5-5.3); SODIUM, SERUM 136 MMOL/L (135-148); TROPONIN I <0.02 NG/ML (<0.05)
[2017-03-06 23:42] LABS: SGOT(AST) 37 U/L (5-40); SGPT(ALT) 111 U/L (5-65)
[2017-03-06 23:43] LABS: ALKALINE PHOSPHATASE 113 U/L (45-117); DIRECT BILIRUBIN 0.3 MG/DL (0.0-0.4); INDIRECT BILIRUBIN(NOT ORDER) 0.7 MG/DL (0.1-0.9); TOTAL PROTEIN 8.1 G/DL (6.0-8.5)
[2017-03-07] MEDS ORDERED: COREG3 PO (01:00)
[2017-03-07] MEDS ORDERED: NITROSTAT0.4 MG SL (01:00)
[2017-03-07] MEDS ORDERED: LIPITOR40 PO (01:00)
[2017-03-07] MEDS ORDERED: GLUCOPHAGE1000 MG PO (01:01)
[2017-03-07] MEDS ORDERED: ASAB PO (01:01)
[2017-03-07] MEDS ORDERED: PRIN5 PO (01:01)
[2017-03-07] MEDS ORDERED: PLAVIX PO (01:01)
[2017-03-07] MEDS ORDERED: GLUCOTROL5 PO (01:02)
[2017-03-07] MEDS ORDERED: NORV5 PO (01:02)
[2017-03-07] MEDS ORDERED: IMDUR60 PO (01:02)
[2017-03-07] MEDS ORDERED: MULTIVIT/MIN PO (01:03)
[2017-03-07 06:53] LABS: BASOPHILS 0.1 %; BASOPHILS ABSOLUTE 0.01 10/3/uL (0.0-0.16); EOSINOPHILS 1.8 %; EOSINOPHILS ABSOLUTE 0.17 10/3/uL (0.0-0.53); HEMATOCRIT 38.4 % (40.0-51.0); HEMOGLOBIN 13.1 g/dL (13.6-17.8); IMMATURE GRANULOCYTES 0.4 %; IMMATURE GRANULOCYTES ABSOLUTE 0.04 10/3/uL (0.0-0.11); LYMPHOCYTES 14.4 %; LYMPHOCYTES ABSOLUTE 1.39 10/3/uL (0.67-4.30); MEAN CORPUSCULAR HEMOGLOB 30.8 pg (26.0-34.0); MEAN CORPUSCULAR VOLUME 90.4 fL (80-100); MEAN PLATELET VOLUME 10.3 fL (9.2-13.0); MONOCYTES 7.9 %; MONOCYTES ABSOLUTE 0.76 10/3/uL (0.21-1.20); NEUTROPHILS 75.4 %; NEUTROPHILS ABSOLUTE 7.27 10/3/uL (2.02-8.40); PLATELET COUNT 232 10/3/uL (150-400); RBC DISTRIBUTION WIDTH 13.3 % (12.0-16.0); RED CELL COUNT 4.25 10/6/uL (4.7-6.1); WHITE BLOOD CELLS 9.6 10/3/uL (4.5-10.5)
[2017-03-07 06:56] LABS: MANUAL DIFF NO %; MEAN CORPUS HGB CONC 34.1 g/dL (32.0-36.0)
[2017-03-07 07:06] LABS: ALBUMIN 3.7 G/DL (3.5-5.0); ALKALINE PHOSPHATASE 105 U/L (45-117); BUN (BLOOD UREA NITROGEN) 15 MG/DL (6-23); CALCIUM, SERUM 9.1 MG/DL (8.5-10.4); CHLORIDE, SERUM 100 MMOL/L (96-112); CO2 (CARBON DIOXIDE) 28 MMOL/L (24-34); CREATININE 1.04 MG/DL (0.70-1.30); GFR AFRICAN AMERICAN 87 ML/MIN (>=60); GFR NON AFRICAN AMERICAN 75 ML/MIN (>=60); GLOBULIN 3.8 G/DL (2.5-4.1); GLUCOSE, SERUM 210 MG/DL (60-99); POTASSIUM, SERUM 4.7 MMOL/L (3.5-5.3); SGOT(AST) 33 U/L (5-40); SGPT(ALT) 97 U/L (5-65); SODIUM, SERUM 135 MMOL/L (135-148); TOTAL BILIRUBIN 1.2 MG/DL (0-1.2); TOTAL PROTEIN 7.5 G/DL (6.0-8.5); TROPONIN I <0.02 NG/ML (<0.05)
[2017-03-07 10:35] LABS: MAX AMP (ADP) 58.7 MM (35-68); TEG - ANGLE 74.1 DEG (53-72); TEG - COAGULATION INDEX 2.6 (-3 TO 3); TEG - MAXIMUM AMPLITUDE 69.5 MM (50-70); TEG - RATE 5.1 MIN (5.0-10.0); TEG PLAVIX/EFFIENT/TICLID(ADP) 26.2 % INHIB (< 40)
[2017-03-08 05:58] LABS: CK-MB 0.7 NG/ML; CPK 56 U/L (0-200); TROPONIN I <0.02 NG/ML (<0.05)
[2017-03-08 08:35] LABS: BASOPHILS 0.1 %; BASOPHILS ABSOLUTE 0.01 10/3/uL (0.0-0.16); EOSINOPHILS 0 %; HEMOGLOBIN 12.5 g/dL (13.6-17.8); IMMATURE GRANULOCYTES 0.5 %; IMMATURE GRANULOCYTES ABSOLUTE 0.06 10/3/uL (0.0-0.11); LYMPHOCYTES 12.4 %; LYMPHOCYTES ABSOLUTE 1.42 10/3/uL (0.67-4.30); MEAN CORPUS HGB CONC 34.7 g/dL (32.0-36.0); MEAN CORPUSCULAR HEMOGLOB 31.1 pg (26.0-34.0); MEAN CORPUSCULAR VOLUME 89.6 fL (80-100); MEAN PLATELET VOLUME 9.7 fL (9.2-13.0); MONOCYTES 7.3 %; MONOCYTES ABSOLUTE 0.84 10/3/uL (0.21-1.20); NEUTROPHILS 79.7 %; NEUTROPHILS ABSOLUTE 9.13 10/3/uL (2.02-8.40); PLATELET COUNT 224 10/3/uL (150-400); RBC DISTRIBUTION WIDTH 13.3 % (12.0-16.0); RED CELL COUNT 4.02 10/6/uL (4.7-6.1); WHITE BLOOD CELLS 11.5 10/3/uL (4.5-10.5)
[2017-03-08 08:36] LABS: MANUAL DIFF NO %
[2017-03-08 08:49] LABS: BUN (BLOOD UREA NITROGEN) 13 MG/DL (6-23); CALCIUM, SERUM 8.4 MG/DL (8.5-10.4); CHLORIDE, SERUM 98 MMOL/L (96-112); CO2 (CARBON DIOXIDE) 24 MMOL/L (24-34); CREATININE 1.22 MG/DL (0.70-1.30); GFR AFRICAN AMERICAN 72 ML/MIN (>=60); GFR NON AFRICAN AMERICAN 62 ML/MIN (>=60); POTASSIUM, SERUM 4.5 MMOL/L (3.5-5.3); SODIUM, SERUM 131 MMOL/L (135-148)
[2017-03-08 08:50] LABS: GLUCOSE, SERUM 258 MG/DL (60-99)
[2017-03-08] MEDS ORDERED: NORCO1 TA2 PO (09:01)
== END 2017-03-08 11:10 | disposition home or self-care (01) ==
LOC: ER 22:04 → 5NO 23:00
PROVIDERS: Emergency Medicine; Hospitalist; Internal Medicine Cardiovascular Disease; Surgery
PROC: 0FT44ZZ Resection of Gallbladder, Percutaneous Endoscopic Approach (ICD-10-PCS; principal; 2017-03-07 14:45)
DX: K81.2 Acute cholecystitis with chronic cholecystitis (principal); I25.10 Atherosclerotic heart disease of native coronary artery without angina pectoris; E78.5 Hyperlipidemia, unspecified; E11.9 Type 2 diabetes mellitus without complications; E78.00 Pure hypercholesterolemia, unspecified; I10 Essential (primary) hypertension; Z82.49 Family history of ischemic heart disease and other diseases of the circulatory system; Z83.3 Family history of diabetes mellitus; Z79.82 Long term (current) use of aspirin; Z79.899 Other long term (current) drug therapy; Z90.89 Acquired absence of other organs
CPT/HCPCS: 71020; 74176; 80048; 80053; 80076; 82550; 82553; 82962; 83690; 83735; 84484; 85025; 85347; 85384; 85576; 85576-59; 85610; 85730; 87015; 87070; 87075; 87077; 87116; 87186; 87205; 88304; 93005; 96372; 96374; 96376; 99285; A9270-GY; G0378; J1170; J2250; J2370; J2405; J2543; J2710; J3010; Q9967